=== PATIENT | female | born 1990 | race Caucasian/White ===

== ENCOUNTER 2019-12-21 14:46 | Emergency (ER) | payer OTHER ==
[2019-12-21 14:52] VITALS: BP 142/80; PULSE 98; RESP 16; TEMP 98.7
--- NOTE | 2019-12-21 15:32 | XR ---
EXAMINATION TYPE: XR ankle complete LT DATE OF EXAM: 12/21/2019 CLINICAL HISTORY: Rolling injury 2 days ago with pain. TECHNIQUE: Frontal, lateral and oblique images of the left ankle are obtained. COMPARISON: None. FINDINGS: There is no acute fracture/dislocation evident in the left ankle. The ankle mortise appea rs within normal limits. Os trigonum is present. The overlying soft tissue appears unremarkable. IMPRESSION: There is no acute fracture or dislocation in the left ankle.
--- NOTE | 2019-12-21 16:02 | ED ---
Lower Extremity Injury HPI - General Chief Complaint: Extremity Injury, Lower Stated Complaint: L Ankle Injury Time Seen by Provider: 12/21/19 14:58 Source: patient Mode of arrival: ambulatory Limitations: no limitations - History of Present Illness Initial Comments: 29-year-old female patient presents to the emergency department today for evaluation of left ankle pain and swelling. Patient states on Saturday she had twisting injury. Patient states that the area did swell. States she's been using an Niraj wrap and resting and the pain seems to be getting worse. She reports a burning sensation around the left lateral ankle. Denies any numbness or tingling. She denies any pain near the knee. Denies falling during the injury on Saturday. Denies any other injuries.Patient denies any headache, neck pain, back pain, chest pain, shortness of breath, dizziness, weakness, abdominal pain, nausea, vomiting, or difficulties with bowel movements or urination. - Related Data Previous Rx's Medication Instructions Recorded Azithromycin [Zithromax Z-pack] 0 mg PO DIRECTED #1 pack 04/18/16 Dicyclomine [Bentyl] 20 mg PO TID #30 tablet 04/18/16 Promethaz-Cod 6.25-10 mg/5 ml 5 ml PO Q6HR PRN #120 ml 04/18/16 [Phenergan with Codeine] methylPREDNISolone [Medrol Dose 4 mg PO DIRECTED #1 pack 04/18/16 Pack] Allergies Allergy/AdvReac Type Severity Reaction Status Date / Time No Known Allergies Allergy Verified 12/21/19 14:52 Review of Systems ROS Statement: Those systems with pertinent positive or pertinent negative responses have been documented in the HPI. ROS Other: All systems not noted in ROS Statement are negative. Past Medical History Past Medical History: No Reported History History of Any Multi-Drug Resistant Organisms: None Reported Past Surgical History: No Surgical Hx Reported Past Psychological History: No Psychological Hx Reported Past Alcohol Use History: Occasional Past Drug Use History: None Reported General Exam Limitations: no limitations General appearance: alert, in no apparent distress, other (This is a well- developed, well-nourished adult female patient in no acute distress. Vital signs upon presentation are temperature 98.7F, pulse 98, respirations 16, blood pressure 142/80, pulse ox 98% on room air.) Respiratory exam: Present: normal lung sounds bilaterally. Absent: respiratory distress, wheezes, rales, rhonchi, stridor Cardiovascular Exam: Present: regular rate, normal rhythm, normal heart sounds. Absent: systolic murmur, diastolic murmur, rubs, gallop, clicks Extremities exam: Present: full ROM, tenderness (Left lateral ankle), normal capillary refill, other (There is soft tissue swelling surrounding the left lateral malleolus. Skin is otherwise pink, warm, dry. Cap refills less than 3 seconds. Pedal and posttibial pulses are 2+ and equal bilaterally. There is no fifth metatarsal tenderness. No proximal tib-fib tenderness.). Absent: normal inspection, pedal edema, joint swelling, calf tenderness Neurological exam: Present: alert, oriented X3, CN II-XII intact Psychiatric exam: Present: normal affect, normal mood Skin exam: Present: warm, dry, intact, normal color. Absent: rash Course Vital Signs 12/21/19 14:50 Temperature 98.7 F Pulse Rate 98 Respiratory 16 Rate Blood Pressure 142/80 O2 Sat by Pulse 98 Oximetry Medical Decision Making - Medical Decision Making 29-year-old female patient presents to the emergency department today for evaluation of left ankle pain and swelling. Physical examination reveals soft tissue swelling surrounding the left lateral malleolus. There is no fifth metatarsal or proximal tib-fib tenderness. Neurovascular status is intact. X- rays negative for acute fracture. Patient symptoms are consistent with acute ankle sprain. We'll place an ankle stirrup splint. She is educated regarding rest, ice, elevation. She is instructed take Tylenol Motrin for pain control. She is instructed to follow-up with her primary care physician for recheck in 1- 2 days. She is instructed to have repeat x-rays performed in 7-10 days if pain symptoms persist. Return parameters were discussed in detail. She verbalizes understanding and agrees with this plan. - Radiology Data Radiology results: report reviewed, image reviewed 3 views of the left ankle are obtained. Report is reviewed in its entirety. Impression by Dr. Venegas shows no acute fracture dislocation in the left ankle and Disposition Clinical Impression: Left ankle sprain Disposition: HOME SELF-CARE Condition: Good Instructions (If sedation given, give patient instructions): Ankle Sprain (ED) Additional Instructions: Rest, ice, elevate the left ankle. Use splint for comfort and support. Take Tylenol and Motrin for pain control. Follow-up with your primary care physician for recheck in 1-2 days. Have repeat x-rays performed in 7-10 days if pain symptoms persist. Return to the emergency department for any other new, wo rsening, or concerning symptoms. Is patient prescribed a controlled substance at d/c from ED?: No Referrals: None,Stated [Primary Care Provider] - 1-2 days Time of Disposition: 16:02
== END 2019-12-21 16:13 | disposition home or self-care (01) ==
LOC: EC 14:46
DX: S93.402A Sprain of unspecified ligament of left ankle, initial encounter (principal); X50.1XXA Overexertion from prolonged static or awkward postures, initial encounter
CPT/HCPCS: 73610; 99283; 29515; L4350

== ENCOUNTER 2019-12-27 04:22 | Observation (INO) | payer OTHER ==
[2019-12-27] MEDS ORDERED: LIDOCAINE 1% INJ 10MG/ML (20 ML MDV) SQ ONE (04:43)
[2019-12-27] MEDS ORDERED: DIPH,PERTUS(ACELL)TETVAC-LF 0.5 ML VIAL IM ONE (04:43)
[2019-12-27] MEDS ORDERED: MORPHINE SULFATE 4 MG/ML SYRINGE IM STA (04:43)
--- NOTE | 2019-12-27 05:22 | XR ---
EXAMINATION TYPE: XR forearm RT DATE OF EXAM: 12/27/2019 COMPARISON: NONE HISTORY: Foreign body TECHNIQUE: 2 views FINDINGS: There is rectangular shaped 16mm by 10 mm density in the anterior soft tissues of the mid f orearm consistent with broken glass foreign body. I see no fracture nor dislocation. Elbow joint and wrist joint appear intact. There is a second adjacent smaller glass foreign body that measures 7 mm i n length. IMPRESSION: 2 glass Foreign bodies in the anterior soft tissues of the mid forearm.
[2019-12-27] MEDS ORDERED: NALOXONE 0.4 MG/ML 1 ML VIAL IV PRN (05:32)
[2019-12-27] MEDS ORDERED: MORPHINE SULFATE 4 MG/ML SYRINGE IV PRN (05:32)
[2019-12-27] MEDS ORDERED: ONDANSETRON 4 MG/2 ML VIAL IVP PRN (05:32)
--- NOTE | 2019-12-27 05:44 | ED ---
Wound/Laceration HPI - General Chief Complaint: Wound/Laceration Stated Complaint: arm lac Time Seen by Provider: 12/27/19 04:34 Source: patient Mode of arrival: ambulatory Limitations: no limitations - History of Present Illness Initial Comments: This patient is a 29-year-old woman who presents to be evaluated for right forearm injury. The patient states that she had lost her temper and punched a plate glass. This was approximately an hour ago now. She states that the glass broke and cut the palmar aspect of her right forearm. She also notes that she has some numbness to the second and third digits of the right hand. She is having difficulty closing her fingers. Patient is not sure when her last tetanus shot was given. She denies any other injuries tonight Onset/Timin -: hour(s) Extremity Location: Right: Forearm Patient Tetanus UTD: No Context: accidental Associated Symptoms: loss of feeling/numbness, suspect foreign body present, unable to move injured part - Related Data Home Medications Medication Instructions Recorded Confirmed Ibuprofen [Motrin Ib] 800 mg PO Q8H PRN 12/27/19 12/27/19 Omeprazole 20 mg PO DAILY 12/27/19 12/27/19 Previous Rx's Medication Instructions Recorded Cephalexin [Keflex] 500 mg PO Q6HR 7 Days #28 cap 12/27/19 Sennosides [Senokot] 2 tab PO DAILY PRN #60 tablet 12/27/19 traMADol HCl [Ultram] 50 mg PO Q6H PRN #16 tab 12/27/19 Allergies Allergy/AdvReac Type Severity Reaction Status Date / Time No Known Allergies Allergy Verified 12/27/19 08:10 Review of Systems ROS Statement: Those systems with pertinent positive or pertinent negative responses have been documented in the HPI. ROS Other: All systems not noted in ROS Statement are negative. Constitutional: Denies: fever, chills Respiratory: Denies: cough, dyspnea Cardiovascular: Denies: chest pain, palpitations Gastrointestinal: Reports: nausea, vomiting. Denies: abdominal pain Genitourinary: Denies: abnormal menses Musculoskeletal: Reports: myalgia (Right forearm) Skin: Reports: lesions (Laceration right forearm) Neurological: Reports: weakness, numbness Hematological/Lymphatic: Denies: easy bleeding Past Medical History Past Medical History: No Reported History History of Any Multi-Drug Resistant Organisms: None Reported Past Surgical History: No Surgical Hx Reported Past Psychological History: No Psychological Hx Reported Smoking Status: Current every day smoker Past Alcohol Use History: Daily Past Drug Use History: Marijuana - Past Family History Father Family Medical History: No Reported History Mother Family Medical History: No Reported History General Exam Limitations: no limitations General appearance: alert, in no apparent distress Head exam: Present: atraumatic, normocephalic Eye exam: Present: normal appearance. Absent: scleral icterus, conjunctival injection Respiratory exam: Present: normal lung sounds bilaterally. Absent: respiratory distress, wheezes, rales, rhonchi, stridor Cardiovascular Exam: Present: regular rate, normal rhythm, normal heart sounds. Absent: systolic murmur, diastolic murmur, rubs, gallop GI/Abdominal exam: Present: soft. Absent: distended, tenderness, guarding, rebound, rigid, mass Right Forearm Wrist exam: Present: laceration, other (There is an approximately 4 cm laceration to the palmar aspect of the right forearm at the middle portion. No active bleeding. There is also a smaller laceration, approximately 2 cm at the antecubital fossa with no active bleeding.). Absent: normal inspection, full ROM, ecchymosis, deformity, crepitus, dislocation Neurological exam: Present: alert, motor sensory deficit, other (Motor exam of the right forearm reveals that there is weakness in opposition of the thumb and fifth digit concerning for median nerve injury. Sensory deficit to the second third digit of the right hand.) Skin exam: Present: warm, dry, normal color Course Vital Signs 12/27/19 12/27/19 04:30 06:08 Temperature 98.2 F Pulse Rate 87 86 Respiratory 26 H 18 Rate Blood Pressure 109/80 102/78 O2 Sat by Pulse 99 100 Oximetry Procedures - Laceration Laceration #1 Consent Obtained: verbal consent Indication: laceration Site: upper extremity Size (cm): 2 Description: linear Depth: simple, single layer Anesthetic Used: lidocaine 1% Anesthesia Technique: local infiltration Amount (mls): 1 Size of Sutures: 4-0 Number of Sutures: 3 Technique: simple, interrupted Medical Decision Making - Medical Decision Making This patient is a 29-year-old woman presenting for laceration to the right forearm. X-ray reveals presence of an approximately 1 x 2 cm foreign body in the tissue. After discussing risks and benefits with the patient I did attempt to retract the tissue and was not able to visualize the foreign body. Given the possibility of lying near the median nerve I did not feel that blind foreign body removal was lucero. I did close the small antecubital fossa laceration, see the procedure note. Patient's tetanus booster is given and dose of antibiotics. She did receive analgesia. Discussed case with Dr. Og who states that he will be able to see the pat ient and probably take her to the OR for foreign body removal, then be able to do further exam to rule out median nerve injury - Lab Data Result diagrams: 12/27/19 05:41 12/27/19 05:41 Disposition Clinical Impression: Laceration, Foreign body Narrative: Please note this is a forearm laceration with foreign body Disposition: ADMITTED IP TO THIS HOSP Condition: Fair Is patient prescribed a controlled substance at d/c from ED?: No
[2019-12-27 05:57] LABS: Basophils % (A) 0 %; Eosinophils # (A) 0.4 k/uL (0-0.7); Eosinophils % (A) 3 %; HCT 39.1 % (34.0-46.0); HGB 12.7 gm/dL (11.4-16.0); Lymphocytes # (A) 2.6 k/uL (1.0-4.8); Lymphocytes % (A) 21 %; MCH 29.5 pg (25.0-35.0); MCHC 32.4 g/dL (31.0-37.0); Mean Platelet Volume 7.6; Monocytes # (A) 0.4 k/uL (0-1.0); Monocytes % (A) 3 %; Neutrophils # (A) 8.8 k/uL (1.3-7.7); Neutrophils % (A) 71 %; Platelet Count 279 k/uL (150-450); RDW 13.2 % (11.5-15.5); WBC 12.3 k/uL (3.8-10.6)
[2019-12-27 06:06] LABS: African American GFR (CKD) >90 (>60 ml/min/1.73 sqM); Anion Gap 7 mmol/L; Blood Urea Nitrogen 6 mg/dL (7-17); Carbon Dioxide 23 mmol/L (22-30); Chloride 113 mmol/L (98-107); Glucose 98 mg/dL (74-99); INR 0.9 (<1.2); Non-African American GFR(CKD) >90 (>60 ml/min/1.73 sqM); Partial Thromboplastin Time 22.3 sec (22.0-30.0); Potassium 3.7 mmol/L (3.5-5.1); Prothrombin Time 9.8 sec (9.0-12.0); Sodium 143 mmol/L (137-145)
[2019-12-27] MEDS: SODIUM CHLORIDE 0.9% 1,000 ML IV SCH ×3 (06:09→14:11)
--- NOTE | 2019-12-27 09:33 | P.HPOR ---
History of Present Illness H&P Date: 12/27/19 This is a 29-year-old female who is admitted for a right forearm laceration with foreign body. Patient states that around 2 AM this morning she punched a window. Patient was evaluated in the emergency room and her tetanus shot was updated. Patient reports numbness in the first 3 digits of the right hand. Patient is a current every day smoker and admits to daily alcohol use. Patient denies any fever/chills, abdominal pain, shortness of breath or chest pain. Review of Systems See HPI. ROS unobtainable: due to endotracheal tube Past Medical History Past Medical History: No Reported History History of Any Multi-Drug Resistant Organisms: None Reported Past Surgical History: No Surgical Hx Reported Past Psychological History: No Psychological Hx Reported Smoking Status: Current every day smoker Past Alcohol Use History: Daily Additional Past Alcohol Use History / Comment(s): daily alcohol use, 5 beers yesterday last being 1AM Past Drug Use History: Marijuana Additional Drug Use History / Comment(s): today 0000 - Past Family History Father Family Medical History: No Reported History Mother Family Medical History: No Reported History Medications and Allergies Home Medications Medication Instructions Recorded Confirmed Type Ibuprofen [Motrin Ib] 800 mg PO Q8H PRN 12/27/19 12/27/19 History Omeprazole 20 mg PO DAILY 12/27/19 12/27/19 History Allergies Allergy/AdvReac Type Severity Reaction Status Date / Time No Known Allergies Allergy Verified 12/27/19 08:10 Physical Examination On exam patient is resting comfortably in bed in no acute distress. Head is normocephalic and atraumatic. There is an approximately 3 cm laceration to the volar aspect of the right mid-forearm. There is another small laceration to the proximal volar right forearm with sutures intact. There is no active bleeding. There is no erythema. Patient has decreased sensation to the first, second, and third digits of the right hand. Sensation is normal to the fourth and fifth digits of the right hand. Patient has limited range of motion of the fingers of the right hand due to pain. Exams of the left upper extremity and bilateral lower extremities are within normal limits. Results X-rays of the right forearm dated 12/26/2019 and negative for any fracture or dislocation. Foreign body noted in the right forearm. - Labs Labs: Abnormal Lab Results - Last 24 Hours (Table) 12/27/19 12/27/19 Range/Units 05:41 05:41 WBC 12.3 H (3.8-10.6) k/uL Neutrophils # 8.8 H (1.3-7.7) k/uL Chloride 113 H (98-107) mmol/L BUN 6 L (7-17) mg/dL Creatinine 0.48 L (0.52-1.04) mg/dL Calcium 8.0 L (8.4-10.2) mg/dL H & H 12/27/19 Range/Units 05:41 Hgb 12.7 (11.4-16.0) gm/dL Hct 39.1 (34.0-46.0) % Coagulation 12/27/19 Range/Units 05:41 INR 0.9 (<1.2) Result Diagrams: 12/27/19 05:41 12/27/19 05:41 Assessment and Plan (1) Foreign body Current Visit: Yes Status: Acute Code(s): XCL6172 - SNOMED Code(s): 378278418 (2) Laceration Current Visit: Yes Status: Acute Code(s): NNT9822 - SNOMED Code(s): 804256207 Plan: 1. NPO today. 2. Planning for irrigation and debridement of right forearm laceration with removal of foreign body today pending patient consent.
[2019-12-27] MEDS ORDERED: SENNOSIDES-DOCUSATE SODIUM 1 EACH TAB PO PRN (10:42)
[2019-12-27] MEDS ORDERED: HYDROmorphone 1 MG/ML 1 ML SYRINGE IVP PRN (10:42)
[2019-12-27] MEDS ORDERED: HYDROmorphone 0.5 MG/0.5 ML SYRINGE IVP PRN ×2 (10:42)
[2019-12-27] MEDS ORDERED: traMADol 50 MG TAB PO PRN (10:43)
[2019-12-27] MEDS ORDERED: SODIUM CHLORIDE 0.9% 1,000 ML IV SCH (10:45)
[2019-12-27] MEDS ORDERED: fentaNYL (PF) 50 MCG/ML 2 ML AMP ONE (12:22)
[2019-12-27] MEDS ORDERED: PROPOFOL 10 MG/ML 20 ML VIAL IV ONE (12:22)
[2019-12-27] MEDS ORDERED: IV FLUID CONTINUATION 1,000 ML IV ONE (12:22)
[2019-12-27] MEDS ORDERED: GLYCOPYRROLATE 0.2 MG/ML 2 ML VIAL ONE (12:22)
[2019-12-27] MEDS ORDERED: SUCCINYLCHOLINE CHLORIDE 100 MG/5 ML SYR IV ONE (12:22)
[2019-12-27] MEDS ORDERED: SODIUM CHLORIDE 0.9% 50 ML with ceFAZolin 1,000 MG IV ONE ×2 (12:49)
[2019-12-27] MEDS ORDERED: BUPIVACAINE (PF) 0.25% 30 ML VIAL SQ ONE ×2 (12:56→13:23)
--- NOTE | 2019-12-27 13:19 | P.OP ---
Date of Procedure: 12/27/19 Preoperative Diagnosis: Laceration right forearm with foreign body Postoperative Diagnosis: Laceration right forearm with foreign body Procedure(s) Performed: 1. Removal foreign body right forearm (glass) 2. Irrigation debridement right forearm laceration 3. Exploration of wound right forearm 4. Primary closure right forearm wound laceration Anesthesia: YANIV Surgeon: Oumar Gonzales Senior Q[employer] Automation Engineer #1: Lorelei Medley Estimated Blood Loss (ml): 10 Pathology: none sent Condition: stable Disposition: PACU Indications for Procedure: This is a 29-year-old female that sustained a laceration to her right forearm earlier this morning after she put her arm through a glass window. She presented to the emergency room with retained foreign body in her right forearm as well as some numbness in her median nerve distribution and difficulty moving fingers. Patient was seen and evaluated by myself, and on exam she did have difficulty moving her fingers, but was able to move all of her PIP and DIP joints of her right hand. She has some decreased sensation in her thumb index and middle fingers. Her motor function for her median nerve is intact. After discussing the surgical nonsurgical treatment options with her at length, I recommended removal of the foreign body with exploration of the wound and primary closure. Informed consent was obtained. Operative Findings: The operative findings are consistent with a retained foreign body, which was glass. There was deep muscle lacerations as well as fascial lacerations. Also, there appeared to be one small piece of glass on the fluoroscopic x-rays that could not be safely located to be removed Description of Procedure: The patient was seen in the preoperative area and her right hand was examined. She is able to flex and extend the DIP and PIP of all her fingers as well as IP joint of her thumb. She has decreased sensation in her thumb and index and middle fingers. Her capillary refill is brisk. Based on her motor exam, she does not have a complete median nerve laceration. The operative area was marked and then the patient was brought to the operating room. She was given preoperative IV antibiotics. General anesthetic was administered by the anesthesia department. Tourniquet was placed on the right upper arm and the right upper extremity is prepped and draped in usual sterile fashion. A universal timeout was then performed confirming the patient's name, surgical site, ALLERGIES, and consent. The wound was then explored. The laceration was measured and found to be 5 cm in length transversely across the volar midforearm . The edges were extended and the wound was then explored. The wound was also extended proximally. The foreign body which was most likely glass was easily encountered and removed. Any devitalized tissue was excised. There was a small amount of muscle and subcutaneous fat which was removed. The wound was then explored. There was muscle lacerations deep in the wound as well as fascia lacerations. There was no significant active bleeding. Fluoroscopic x-rays confirmed removal of the large piece of glass. It appeared there is a small thin piece of glass still within the tissue on the fluoroscopic x-ray. This was unable to be located without causing further damage. Due to its size and location it was left in place. It was then irrigated with antibiotic solution and closed with 2-0 Vicryl followed by 4-0 nylon. Sterile dressing was then applied and patient was transferred recovery room stable condition Asst. HERMAN Melchor was required due the complexity surgery the need for skilled surgical elastic knitter hand frame.
--- NOTE | 2019-12-27 13:39 | P.DS ---
Providers Date of admission: 12/27/19 05:32 Expected date of discharge: 12/27/19 Attending physician: Momo Gonzales Primary care physician: Stated None - Discharge Diagnosis(es) (1) Foreign body Current Visit: Yes Status: Acute (2) Laceration Current Visit: Yes Status: Acute Hospital Course: This is a 29-year-old female who is admitted for a right forearm laceration with foreign body. Patient underwent I&D of right forearm laceration with removal of foreign body and primary wound closure on by Dr Oumar Gonzales. The procedure is performed without complication or sequele. Patient is doing well postoperatively. Labs and vitals are stable on day of discharge. On exam patient is resting comfortably in bed in no acute distress. Incision is clean, dry and intact. The right upper extremity is warm and well perfused. Patient is in good condition for discharge home. Patient Condition at Discharge: Fair Plan - Discharge Summary Discharge Rx Participant: Yes New Discharge Prescriptions: New Cephalexin [Keflex] 500 mg PO Q6HR 7 Days #28 cap Sennosides [Senokot] 2 tab PO DAILY PRN #60 tablet PRN Reason: Constipation traMADol HCl [Ultram] 50 mg PO Q6H PRN #16 tab PRN Reason: Pain No Action Ibuprofen [Motrin Ib] 800 mg PO Q8H PRN PRN Reason: Pain Omeprazole 20 mg PO DAILY Discharge Medication List Cephalexin [Keflex] 500 mg PO Q6HR 7 Days #28 cap 12/27/19 [Rx] Ibuprofen [Motrin Ib] 800 mg PO Q8H PRN 12/27/19 [History] Omeprazole 20 mg PO DAILY 12/27/19 [History] Sennosides [Senokot] 2 tab PO DAILY PRN #60 tablet 12/27/19 [Rx] traMADol HCl [Ultram] 50 mg PO Q6H PRN #16 tab 12/27/19 [Rx] Follow up Appointment(s)/Referral(s): None,Stated [Primary Care Provider] - 1-2 days Oumar Gonzales DO [Doctor of Osteopathic Medicine] - 1 Week Activity/Diet/Wound Care/Special Instructions: Keep dressing clean, dry and intact. May shower in 24-48 hours if no drainage from the incision. Sutures to be removed in 7-10 days. Rest, ice and elevate the right upper extremity for swelling. Please take medications as prescribed. Please follow-up with [facility] and call with any questions or concerns, . Discharge Disposition: HOME SELF-CARE
[2019-12-27] MEDS: HYDROmorphone 1 MG/ML 1 ML SYRINGE IVP ONE ×2 (13:40→13:46)
[2019-12-27 14:27] VITALS: PULSE 83
[2019-12-27 14:51] VITALS: BP 119/84; RESP 16; TEMP 98.4
--- NOTE | 2019-12-27 16:01 | XR ---
EXAMINATION TYPE: XR forearm RT, FL guidance operating room DATE OF EXAM: 12/27/2019 CLINICAL HISTORY: Foreign body removal TECHNIQUE: Fluoroscopy. COMPARISON: None. FINDINGS: Fluoroscopic guidance was provided during procedure performed by Dr. Gonzales. A total of 32 seconds of fluoroscopic time was utilized during the procedure and 2 spot images was acquired. Pl ease see operative report for additional details. IMPRESSION: As Above.
== END 2019-12-27 16:26 | disposition home or self-care (01) ==
LOC: EC 04:22 → 1SOBS 05:32
PROVIDERS: ADMIT Orthopaedic Surgery Hand Surgery; ATTEND Orthopaedic Surgery Hand Surgery
DX: S51.821A Laceration with foreign body of right forearm, initial encounter (principal); W22.09XA Striking against other stationary object, initial encounter; W25.XXXA Contact with sharp glass, initial encounter; Z79.899 Other long term (current) drug therapy; F17.200 Nicotine dependence, unspecified, uncomplicated
CPT/HCPCS: 12001; 90471; 99284; 36415; 80048; 85025; 85610; 85730; 84703; 73090; 90715; 13121; G0378; J2270; J0690 ×2; J2001; J3010; J1170 ×2; J0330; J2704

== ENCOUNTER 2021-10-09 19:26 | Observation (INO) | payer OTHER ==
[2021-10-09] MEDS ORDERED: ONDANSETRON ODT 4 MG TAB PO STA (20:17)
--- NOTE | 2021-10-09 20:55 | CT ---
EXAMINATION TYPE: CT brain wo con DATE OF EXAM: 10/09/2021 COMPARISON: None HISTORY: headache and severe pressure behind orbits CT DLP: 1106.4 mGycm Automated exposure control for dose reduction was used. Images obtained of the brain without contrast. Ventricles have normal size. There is no mass effect or midline shift. No sign of intracranial hemorr matt. The calvarium is intact. There is normal aeration of the mastoid sinuses. IMPRESSION: Normal unenhanced head CT scan.
[2021-10-09] MEDS ORDERED: diphenhydrAMINE 50 MG/ML 1 ML VIAL IVP STA (21:14)
[2021-10-09] MEDS ORDERED: SODIUM CHLORIDE 0.9% 1,000 ML IV STA (21:14)
[2021-10-09] MEDS ORDERED: DEXAMETHASONE SOD PHOSPHATE 10 MG/ML 1 ML VIAL IV STA (21:14)
[2021-10-09] MEDS ORDERED: KETOROLAC 15 MG/ML 1 ML VIAL IVP STA (21:14)
[2021-10-09] MEDS ORDERED: CAFFEINE-SODIUM BENZOATE 500 MG in SODIUM CHLORIDE 0.9% 1,000 ML IVPB ONE (21:30)
--- NOTE | 2021-10-09 22:05 | ED ---
Headache HPI - General Mode of arrival: ambulatory <Aracelis Henriquez - Last Filed: 10/10/21 00:40> <Elizabeth Zamora - Last Filed: 10/13/21 13:57> - General Chief Complaint: Headache Stated Complaint: migraine, vomiting blood Time Seen by Provider: 10/09/21 20:45 - History of Present Illness Initial Comments: Patient is a 31-year-old female presenting with chief complaint of migraine. Patient has no history of migraines. Headache started 5 days ago. It is primar melody located behind the right eye, she states that there is a large amount of pressure. She admits to some blurriness in the right eye. She has been nauseous and vomiting. She admits to light sensitivity. She denies any neck pain or stiffness, fever, chills, chest pain, shortness of breath, loss of consciousness, seizure, numbness, tingling, abdominal pain, palpitations, weakness, recent trauma. (Aracelis Henriquez) - Related Data Home Medications Medication Instructions Recorded Confirmed Ibuprofen [Motrin Ib] 800 mg PO Q8H PRN 12/27/19 10/09/21 Omeprazole Magnesium [PriLOSEC OTC] 20 mg PO DAILY 10/09/21 10/09/21 Previous Rx's Medication Instructions Recorded Topiramate [Topamax] 25 mg PO BID 30 Days #60 tab 10/10/21 Allergies Allergy/AdvReac Type Severity Reaction Status Date / Time No Known Allergies Allergy Verified 10/09/21 22:52 Review of Systems ROS Other: All systems not noted in ROS Statement are negative. <Aracelis Henriquez - Last Filed: 10/10/21 00:40> ROS Other: All systems not noted in ROS Statement are negative. <Elizabeth Zamora - Last Filed: 10/13/21 13:57> ROS Statement: Those systems with pertinent positive or pertinent negative responses have been documented in the HPI. Past Medical History Past Medical History: No Reported History History of Any Multi-Drug Resistant Organisms: None Reported Past Surgical History: No Surgical Hx Reported Past Psychological History: No Psychological Hx Reported Smoking Status: Current every day smoker Past Alcohol Use History: Occasional Past Drug Use History: Marijuana - Past Family History Father Family Medical History: No Reported History Mother Family Medical History: No Reported History <Aracelis Henriquez - Last Filed: 10/10/21 00:40> General Exam General appearance: alert, in no apparent distress Head exam: Present: atraumatic, normocephalic, normal inspection Eye exam: Present: normal appearance, PERRL, EOMI. Absent: scleral icterus, conjunctival injection, periorbital swelling Neck exam: Present: normal inspection, full ROM, other (Negative Kernig and Brudzinski's). Absent: tenderness, meningismus Respiratory exam: Present: normal lung sounds bilaterally. Absent: respiratory distress, wheezes, rales, rhonchi, stridor Cardiovascular Exam: Present: regular rate, normal rhythm, normal heart sounds. Absent: systolic murmur, diastolic murmur, rubs, gallop, clicks GI/Abdominal exam: Present: soft. Absent: distended, tenderness, guarding, rebound, rigid Neurological exam: Present: alert, oriented X3, CN II-XII intact Expanded Patient oriented to: Present: person, place, time Speech: Present: fluid speech Cranial nerves: EOM's Intact: Normal, Tongue Deviation: Normal, Nystagmus: Normal (None present), Facial Sensation: Normal Cerebellar function: Finger to Nose: Normal, Heel to [place]: Normal Motor strength exam: RUE: 5, LUE: 5, RLE: 5, LLE: 5 Eye Response: (4) open spontaneously Motor Response: (6) obeys commands Verbal Response: (5) oriented Psychiatric exam: Present: normal affect, normal mood Skin exam: Present: warm, dry, intact, normal color. Absent: rash <Aracelis Henriquez - Last Filed: 10/10/21 00:40> Course Vital Signs 10/09/21 10/10/21 20:07 01:06 Temperature 99.3 F Pulse Rate 101 H 85 Respiratory 17 18 Rate Blood Pressure 125/87 132/67 O2 Sat by Pulse 98 98 Oximetry Medical Decision Making - Lab Data Result diagrams: 10/09/21 23:34 10/09/21 23:34 <Aracelis Henriquez - Last Filed: 10/10/21 00:40> - Lab Data Result diagrams: 10/09/21 23:34 10/09/21 23:34 <Elizabeth Zamora - Last Filed: 10/13/21 13:57> - Medical Decision Making Patient is a 31-year-old female presenting with chief complaint of migraine. She has no history of migraines, and this episode started 5 days ago, and is located primarily behind the right eye. On examination there is no neck s tiffness or tenderness, negative Kernig and Brudzinski's exam, no focal neurological deficits. CT of the brain without contrast is negative for any acute intracranial process. CBC shows no leukocytosis. CRP is 4.9. Sodium of 135. Patient has been given 1 L fluid bolus, Zofran, morphine, Reglan, Toradol, Benadryl, Decadron, caffeine without improvement. I spoke with Dr. Pompa from neurology, who advised obtaining a CTA of the brain, and utilizing magnesium, Fioricet, and Solu-Medrol for pain control. CTA is ordered, magnesium, Fioricet, and Solu-Medrol are ordered. I spoke with Dr. Alarcon from [facility] agreed to admit the patient. Patient was agreeable to the plan. I discussed this case with my attending Dr. Zamora. (Aracelis Henriquez) - Lab Data Lab Results 10/09/21 10/09/21 10/09/21 Range/Units 23:34 23:34 23:34 WBC 10.2 (3.8-10.6) k/uL RBC 4.48 (3.80-5.40) m/uL Hgb 13.3 (11.4-16.0) gm/dL Hct 39.7 (34.0-46.0) % MCV 88.7 (80.0-100.0) fL MCH 29.7 (25.0-35.0) pg MCHC 33.5 (31.0-37.0) g/dL RDW 12.9 (11.5-15.5) % Plt Count 315 (150-450) k/uL MPV 7.9 Neutrophils % 84 % Lymphocytes % 11 % Monocytes % 3 % Eosinophils % 2 % Basophils % 0 % Neutrophils # 8.5 H (1.3-7.7) k/uL Lymphocytes # 1.1 (1.0-4.8) k/uL Monocytes # 0.3 (0-1.0) k/uL Eosinophils # 0.2 (0-0.7) k/uL Basophils # 0.0 (0-0.2) k/uL ESR 29 H (0-20) mm/hr Sodium 135 L (137-145) mmol/L Potassium 3.7 (3.5-5.1) mmol/L Chloride 105 (98-107) mmol/L Carbon Dioxide 20 L (22-30) mmol/L Anion Gap 10 mmol/L BUN 13 (7-17) mg/dL Creatinine 0.73 (0.52-1.04) mg/dL Est GFR (CKD-EPI)AfAm >90 (>60 ml/min/1.73 sqM) Est GFR (CKD-EPI)NonAf >90 (>60 ml/min/1.73 sqM) Glucose 89 (74-99) mg/dL Calcium 8.1 L (8.4-10.2) mg/dL Total Bilirubin 0.4 (0.2-1.3) mg/dL AST 32 (14-36) U/L ALT 45 H (4-34) U/L Alkaline Phosphatase 96 (38-126) U/L C-Reactive Protein 4.9 H (<1.0) mg/dL Total Protein 6.7 (6.3-8.2) g/dL Albumin 3.9 (3.5-5.0) g/dL Coronavirus (PCR) (Not Detectd) Influenza Type A RNA Not Detected (Not Detectd) Influenza Type B (PCR) Not Detected (Not Detectd) 10/09/21 Range/Units 23:34 WBC (3.8-10.6) k/uL RBC (3.80-5.40) m/uL Hgb (11.4-16.0) gm/dL Hct (34.0-46.0) % MCV (80.0-100.0) fL MCH (25.0-35.0) pg MCHC (31.0-37.0) g/dL RDW (11.5-15.5) % Plt Count (150-450) k/uL MPV Neutrophils % % Lymphocytes % % Monocytes % % Eosinophils % % Basophils % % Neutrophils # (1.3-7.7) k/uL Lymphocytes # (1.0-4.8) k/uL Monocytes # (0-1.0) k/uL Eosinophils # (0-0.7) k/uL Basophils # (0-0.2) k/uL ESR (0-20) mm/hr Sodium (137-145) mmol/L Potassium (3.5-5.1) mmol/L Chloride (98-107) mmol/L Carbon Dioxide (22-30) mmol/L Anion Gap mmol/L BUN (7-17) mg/dL Creatinine (0.52-1.04) mg/dL Est GFR (CKD-EPI)AfAm (>60 ml/min/1.73 sqM) Est GFR (CKD-EPI)NonAf (>60 ml/min/1.73 sqM) Glucose (74-99) mg/dL Calcium (8.4-10.2) mg/dL Total Bilirubin (0.2-1.3) mg/dL AST (14-36) U/L ALT (4-34) U/L Alkaline Phosphatase (38-126) U/L C-Reactive Protein (<1.0) mg/dL Total Protein (6.3-8.2) g/dL Albumin (3.5-5.0) g/dL Coronavirus (PCR) Not Detected (Not Detectd) Influenza Type A RNA (Not Detectd) Influenza Type B (PCR) (Not Detectd) Disposition Time of Disposition: 23:51 Decision to Admit Reason: Admit from EC Decision Date: 10/09/21 Decision Time: 23:51 <Aracelis Henriquez - Last Filed: 10/10/21 00:40> <Elizabeth Zamora - Last Filed: 10/13/21 13:57> Clinical Impression: Migraine Disposition: ADMITTED IP TO THIS HOSP Condition: Good
[2021-10-09] MEDS ORDERED: MORPHINE SULFATE 4 MG/ML SYRINGE IVP STA (22:15)
[2021-10-09] MEDS ORDERED: METOCLOPRAMIDE 5 MG/ML 2 ML VIAL IVP STA (23:17)
[2021-10-09 23:54] LABS: Basophils % (A) 0 %; Eosinophils # (A) 0.2 k/uL (0-0.7); Eosinophils % (A) 2 %; HCT 39.7 % (34.0-46.0); HGB 13.3 gm/dL (11.4-16.0); Lymphocytes # (A) 1.1 k/uL (1.0-4.8); Lymphocytes % (A) 11 %; MCH 29.7 pg (25.0-35.0); MCHC 33.5 g/dL (31.0-37.0); MCV 88.7 fL (80.0-100.0); Mean Platelet Volume 7.9; Monocytes # (A) 0.3 k/uL (0-1.0); Monocytes % (A) 3 %; Neutrophils # (A) 8.5 k/uL (1.3-7.7); Neutrophils % (A) 84 %; Platelet Count 315 k/uL (150-450); RBC 4.48 m/uL (3.80-5.40); RDW 12.9 % (11.5-15.5); WBC 10.2 k/uL (3.8-10.6)
[2021-10-09] MEDS ORDERED: BUTALB/APAP/CAFF 50-325-40MG TAB PO STA (23:57)
[2021-10-10] MEDS ORDERED: NALOXONE 0.4 MG/ML 1 ML VIAL IV PRN (00:02)
[2021-10-10 00:13] LABS: ALT 45 U/L (4-34); AST 32 U/L (14-36); African American GFR (CKD) >90 (>60 ml/min/1.73 sqM); Albumin 3.9 g/dL (3.5-5.0); Alkaline Phosphatase 96 U/L (38-126); Anion Gap 10 mmol/L; Blood Urea Nitrogen 13 mg/dL (7-17); C Reactive Protein 4.9 mg/dL (<1.0); Calcium 8.1 mg/dL (8.4-10.2); Carbon Dioxide 20 mmol/L (22-30); Chloride 105 mmol/L (98-107); Glucose 89 mg/dL (74-99); Non-African American GFR(CKD) >90 (>60 ml/min/1.73 sqM); Potassium 3.7 mmol/L (3.5-5.1); Sodium 135 mmol/L (137-145); Total Bilirubin 0.4 mg/dL (0.2-1.3); Total Protein 6.7 g/dL (6.3-8.2)
[2021-10-10] MEDS ORDERED: methylPREDNISolone SOD SUCCI 125 MG/2 ML VIAL IV PRN (00:20)
[2021-10-10] MEDS: MAGNESIUM SULFATE-D5W PMX 1 GM in DEXTROSE/WATER 1 100ML.BAG IVPB SCH ×2 (00:35→01:09)
[2021-10-10 01:07] VITALS: RESP 18
--- NOTE | 2021-10-10 01:33 | CT ---
EXAMINATION TYPE: CT angio head neck DATE OF EXAM: 10/10/2021 COMPARISON: None HISTORY: new onset migraines x [address] DLP: 450.3 mGycm Automated exposure control for dose reduction was used. CONTRAST: Performed with IV Contrast, patient injected with 65ml mL of Isovue 370. Images obtained from the aortic arch to the vertex of the brain with IV contrast. There are Three-D p ostprocessed images. There is normal branching pattern of the great vessels on the aortic arch. There is bilateral arteria l flow in the subclavian arteries. There is arterial flow in the common internal and external carotid arteries bilaterally there is wide patency of the carotid artery bifurcations. There is arterial t[place] w in both vertebral arteries. There is arterial flow in the anterior middle and posterior cerebral arteries. There is arterial flow in the vertebral basilar artery system. No evidence of intracranial aneurysm or neovascularity. No m ass effect. No evidence of hemodynamic stenosis. There is normal enhancement of the venous sinuses. IMPRESSION: Normal CT angiogram of the brain. Normal CT angiogram of the neck.
[2021-10-10 01:39] LABS: Erythrocyte Sedimentation Rate 29 mm/hr (0-20)
[2021-10-10 01:42] LABS: Appearance,Urine Clear (Clear); Bacteria,Urine Rare /hpf; Bilirubin,Urine Negative (Negative); Blood,Urine Small (Negative); Color,Urine Light Yellow; Glucose,Urine (UA) Negative (Negative); Ketones,Urine 1+ (Negative); Leukocyte Esterase,Urine Negative (Negative); Nitrite,Urine Negative (Negative); Protein,Urine Negative (Negative); RBC,Urine <1 /hpf (0-5); Squamous Epithelial Cell,Urine <1 /hpf (0-4); Urobilinogen,Urine <2.0 mg/dL (<2.0); WBC,Urine 1 /hpf (0-5)
[2021-10-10] MEDS ORDERED: BUTALB/APAP/CAFF 50-325-40MG TAB PO PRN (03:24)
--- NOTE | 2021-10-10 03:25 | P.HPIM ---
History of Present Illness H&P Date: 10/10/21 Chief Complaint: Headache 31 year old woman with no significant medical history presented with headache. Pt says her pain started 7 days ago with sudden onset, and has not gotten any better. She was not drinking prior to her headache, nor was she placed on any new medications. She's tried ibuprofen, but it hasnt worked. She denies fevers, chills, vomiting, chest pain, palpitations, syncope, presyncope, abdominal pain, constipation, diarrhea, dysuria, dyschezia, numbness/weakness. She reports photophobia, nausea, generalized weakness and fatigue. On my evaluation, patient is afebrile, 132/67, HR 85, 98% on room air. CBC, chemistries are unremarkable. LFTs show elevated ALT to 45. ESR/CRP are 29/4.9. CTH was negative. CT H/N angio was also negative. All Systems reviewed and pertinent positives and negatives noted in HPI, all other symptoms are negative Gen: awake, alert HEENT: normocephalic, atraumatic, good hearing acuity, moist mucous membranes Resp: good air exchange, breathing comfortably with no accessory muscle use CVS: good distal perfusion x 4, GI: soft, NTTP, ND : no SPT, no CVAT, wilson catheter not present MSK: no pitting edema, no clubbing Neuro: non-focal, moving all extremities Psych: cooperative, euthymic mood Labs and imaging reviewed as above Assessment/plan: Migraine -Admit to observation, telemetry -neurology consult -toradol q6h PRN -Fioricet PRN Pt is full code DVT PPx with early ambulation Past Medical History Past Medical History: No Reported History History of Any Multi-Drug Resistant Organisms: None Reported Past Surgical History: No Surgical Hx Reported Past Psychological History: No Psychological Hx Reported Smoking Status: Current every day smoker Past Alcohol Use History: Occasional Past Drug Use History: Marijuana - Past Family History Father Family Medical History: No Reported History Mother Family Medical History: No Reported History Medications and Allergies Home Medications Medication Instructions Recorded Confirmed Type Ibuprofen [Motrin Ib] 800 mg PO Q8H PRN 12/27/19 10/09/21 History Omeprazole Magnesium [PriLOSEC OTC] 20 mg PO DAILY 10/09/21 10/09/21 History Allergies Allergy/AdvReac Type Severity Reaction Status Date / Time No Known Allergies Allergy Verified 10/09/21 22:52 Physical Exam Osteopathic Statement: *. No significant issues noted on an osteopathic structural exam other than those noted in the History and Physical/Consult. Vitals: Vital Signs Temp Pulse Resp BP Pulse Ox 10/10/21 01:06 85 18 132/67 98 10/09/21 20:07 99.3 F 101 H 17 125/87 98 Intake and Output 10/09/21 10/09/21 10/10/21 14:59 22:59 06:59 Other: Voiding Method Toilet Weight 73.936 kg 73.936 kg Results CBC & Chem 7: 10/09/21 23:34 10/09/21 23:34 Labs: Abnormal Lab Results - Last 24 Hours (Table) 10/09/21 10/09/21 10/10/21 Range/Units 23:34 23:34 01:06 Neutrophils # 8.5 H (1.3-7.7) k/uL ESR 29 H (0-20) mm/hr Sodium 135 L (137-145) mmol/L Carbon Dioxide 20 L (22-30) mmol/L Calcium 8.1 L (8.4-10.2) mg/dL ALT 45 H (4-34) U/L C-Reactive Protein 4.9 H (<1.0) mg/dL Urine Ketones 1+ H (Negative) Urine Blood Small H (Negative) Urine Bacteria Rare H (None) /hpf
[2021-10-10] MEDS ORDERED: KETOROLAC 15 MG/ML 1 ML VIAL IVP PRN (04:00)
[2021-10-10 07:40] VITALS: BP 134/80; PULSE 84; TEMP 98
[2021-10-10] MEDS ORDERED: diphenhydrAMINE 50 MG/ML 1 ML VIAL IVP STA (09:29)
[2021-10-10] MEDS ORDERED: PROCHLORPERAZINE INJ 10 MG/2 ML VIAL IVP STA (09:30)
[2021-10-10] MEDS ORDERED: KETOROLAC 15 MG/ML 1 ML VIAL IVP STA (09:30)
[2021-10-10] MEDS ORDERED: SUMAtriptan succinate 6 MG/0.5 ML VIAL SQ STA (09:36)
--- NOTE | 2021-10-10 13:36 | P.CNNES ---
History of Present Illness Consult date: 10/10/21 Requesting physician: Aracelis Henriquez Reason for Consult: new onset migraine History of Present Illness: This is a 31-year-old woman who presented to emergency department for headache. It seems to the patient the has a new onset of headache about a week ago. It is located over the bilateral frontal (right>left) and right retro-orbital. Feels it is pressure/aching, constant. Denies radiation. Has photophobia, nausea. Denies phonophobia or vomiting. Feels headache is 7-9/10 on presentation but currently is 3-4/10. Feels has some blurry vision over the right eye. Denies any head trauma, fever, cough recently. Denies any focal weakness, numbness, difficulty getting words out. Denies similar headache like this. Mother has migraines. Patient does not consume caffeine. 1 pack can last her 2-3 days. She is undergoing a lot of stress since unemployed currently and dealing with her -in-laws and was emotional about it. Some other workup in the hospital consisted of: Patient has been afebrile during this hospital visit White blood cell is 10.2 ESR is 29 and a normal supposed to be between 0-20 CRP is 4.9 normal supposed to be less than 1.0. CT of the head is reported as a normal unenhanced head CT scan. I personally reviewed the CT of the head and I agree with the report. CT angiography of the head and neck is reported as normal. Influenza A/B and salmon virus is not detected In the ED the patient got multiple medication to treat a headache she received migraine cocktail consisting of Compazine, Benadryl and Toradol as well as Zofran and she received is seems the migraine consult twice. She received dexamethasone 10 mg IV once. As well as that she received methylprednisolone 60mg IV,. Fiorcet. Review of Systems Review of system: The 12 point system was reviewed and apparent positive and negative per HPI. Past Medical History Past Medical History: No Reported History History of Any Multi-Drug Resistant Organisms: None Reported Past Surgical History: No Surgical Hx Reported Past Psychological History: No Psychological Hx Reported Smoking Status: Current every day smoker Past Alcohol Use History: Occasional Past Drug Use History: Marijuana - Past Family History Father Family Medical History: No Reported History Mother Family Medical History: No Reported History Medications and Allergies Home Medications Medication Instructions Recorded Confirmed Type Ibuprofen [Motrin Ib] 800 mg PO Q8H PRN 12/27/19 10/09/21 History Omeprazole Magnesium [PriLOSEC OTC] 20 mg PO DAILY 10/09/21 10/09/21 History Topiramate [Topamax] 25 mg PO BID 30 Days #60 tab 10/10/21 Rx Allergies Allergy/AdvReac Type Severity Reaction Status Date / Time No Known Allergies Allergy Verified 10/09/21 22:52 Physical Examination - Vital Signs Vital Signs: Vital Signs Temp Pulse Pulse Resp BP BP Pulse Ox 10/10/21 07:00 98.0 F 84 18 134/80 99 10/10/21 02:35 98.1 F 63 18 117/76 97 10/10/21 01:06 85 18 132/67 98 10/09/21 20:07 99.3 F 101 H 17 125/87 98 Intake and Output 10/09/21 10/10/21 10/10/21 22:59 06:59 14:59 Intake Total 90 Balance 90 Intake: Oral 90 Other: Voiding Method Toilet # Voids 2 Weight 73.936 kg 73.936 kg GENERAL: The patient is lying in bed and is not in acute distress. CHEST: The heart rate is regular rate rhythm. No murmurs to auscultation. No carotid bruit bilaterally. LUNG: Clear to auscultation bilaterally no wheezing noted throughout. Not labored breathing. ABDOMEN/GI: Bowel sounds present in all 4 quadrants. No tenderness to palpation throughout. NEUROLOGICAL: Higher mental function: The patient is awake, alert, oriented to self, place and time. Patient is following commands. No aphasia and no neglect. Cranial nerves: The pupils are round, equal and reactive to light and accommodation. Visual naqvi are full to confrontation throughout. Extraocular movement is intact no nystagmus is noted. Facial sensation is normal to touch throughout. The facial strength is normal throughout. Hearing is normal bilaterally to hand rub. Tongue is midline and moved [id number] without any difficulty. No dysarthria is noted. Shoulder shrug is normal bilaterally. Motor: The strength is 5 over 5 throughout. Normal tone and bulk. Cerebellum: Normal finger to nose heel to sanabria bilaterally. Sensation: Sensation is normal to touch throughout. Reflexes (right/left): 2+ throughout. Plantars are downgoing bilaterally. Results - Laboratory Findings CBC and BMP: 10/09/21 23:34 10/09/21 23:34 Abnormal Lab Findings: Abnormal Labs 10/09/21 10/09/21 10/10/21 23:34 23:34 01:06 Neutrophils # 8.5 H ESR 29 H Sodium 135 L Carbon Dioxide 20 L Calcium 8.1 L ALT 45 H C-Reactive Protein 4.9 H Urine Ketones 1+ H Urine Blood Small H Urine Bacteria Rare H Assessment and Plan Assessment: New onset migraine with aura Tobacco use Plan: I ordered MRI Brain w/ and w/o to rule out any mass or structural abnormality which can be performed as outpatient since no focality (no availability today for MRI). Recommend starting Topamax 25mg 1 tab bid and in one week if no improvement recommend going up to 25mg 2 tab bid. Use Imitrex 50mg PRN (use 2 hours in between within one day and max is 2 in a day with max of 9 tab in a month. Continue when necessary sets when necessary. I also added Imitrex 60 mg subcu once. On Toradol 50 mg IV when necessary. I also started the patient on Topamax 51 g one tablet twice a day. Continue neuro checks Regarding her stressors at home: Recommend psychiatry consultation and if not possible can be done as outpatient and patient needs to follow-up with therapist. She denies of suicidal or homicidal ideation or plan. We'll defer the rest of medical management to primary team Patient needs to follow-up with neurologist as outpatient within 1-2 weeks. The plan is discussed with the patient and primary team. Thank you for the consultation Patient is clear for discharge from neurological perspective. Luis Antonio Paul M.D. Neuro-hospitalist Time with Patient: Greater than 30
--- NOTE | 2021-10-10 19:08 | P.DS ---
Providers Date of admission: 10/10/21 00:05 Expected date of discharge: 10/10/21 Attending physician: Rip Alarcon MD Consults: 10/10/21 00:03 Consult Physician Urgent Consulting Provider: Luis Antonio Paul Consult Reason/Comments: new onset migraine Do you want consulting provider notified?: Yes Primary care physician: Stated None Hospital Course: Discharge Diagnosis: Migraine, patient discharged home on Topamax 25 mg twice daily Nicotine dependence, recommend smoking cessation Increased life stressors, recommend outpatient therapist/psychiatrist Cannabis use Hospital Course: Patient is a 31-year-old female with a past medical history occasional marijuana use and nicotine dependence. She presented to our emergency department on 10/10/21 with a chief complaint of headache. Patient reports increased stressors in her home as her [id number] and [id number] moved in and she has been experiencing a persistent headache 7 days with slight changes in vision in her right eye that has not improved despite home Motrin use. Patient underwent CT brain which was negative for acute intercranial process. CTA head and neck negative. CBC and BMP showing no significant abnormalities with the exception of mildly elevated ALT of 45. Urinalysis negative for infection and urine hCG negative. Covid PCR, influenza A/B both negative. Patient was admitted under our services with consultation to neurology. Patient underwent neurology evaluation. Patient reports significant improvement in headache. Neurology recommending Topamax 25 mg twice daily and outpatient follow-up with neurologist office for recommended outpatient MRI. Patient also given information on outpatient therapist/psychiatrist: [facility] as requested for increased stressors in her home. Patient medically stable for discharge at this time and to follow up outpatient with PCP and neurology. Patient seen and examined at bedside. Vital signs reviewed and stable. General: Nontoxic, no distress and appears stated age. Derm: Skin warm and dry, normal coloration for ethnicity. Head: Atraumatic, normocephalic and symmetric. Eyes: EOMs intact, no lid lag, and anicteric sclera Mouth: no lip lesions, mucus membranes moist Cardiovascular: regular rate and rhythm with normal S1S2, no murmur, positive posterior tibial pulses bilaterally, and cap refill < 2 seconds. Lungs: Respirations even, regular, and unlabored on room air. Lungs CTA bilaterally, no rhonchi, no rales, no wheezing, and no accessory muscle usage. Abdominal: soft, nontender to palpation, no guarding, no appreciable organomegaly Ext: ROM intact. No gross muscle atrophy, no edema, no contractures Neuro: Speech clear, face symmetrical and CN II-XII grossly intact with no noted focal neuro deficits Psych: Alert and oriented to person, place, time, and situation. Appropriate and pleasant affect. A total of 32 minutes of time were spent preparing this complex discharge summary. Pt was discharged on 10/10/21 at 1:03 PM. Chris Freeman NP rendered care for this patient independently, reviewed the findings and plan as documented in the note above. I did not physically speak with or examine the patient on this date. Patient Condition at Discharge: Good Plan - Discharge Summary New Discharge Prescriptions: New Topiramate [Topamax] 25 mg PO BID 30 Days #60 tab Continue Ibuprofen [Motrin Ib] 800 mg PO Q8H PRN PRN Reason: Pain Omeprazole Magnesium [PriLOSEC OTC] 20 mg PO DAILY Discharge Medication List Ibuprofen [Motrin Ib] 800 mg PO Q8H PRN 12/27/19 [History] Omeprazole Magnesium [PriLOSEC OTC] 20 mg PO DAILY 10/09/21 [History] Topiramate [Topamax] 25 mg PO BID 30 Days #60 tab 10/10/21 [Rx] Follow up Appointment(s)/Referral(s): Cintia Chaudhry MD [REFERRING] - 1 Week Delonte Del Toro MD [REFERRING] - 1-2 Days (Please be evaluated and establish care with a PCP) Patient Instructions/Handouts: Migraine Headache (ED) Activity/Diet/Wound Care/Special Instructions: Activity: As tolerated. Take breaks as needed. Diet: Heart healthy and carb consistent diet. Avoid salts, or foods with hidden salts such as canned or boxed foods and frozen dinners. Extra salt makes your heart work harder and traps the fluid in your body for longer. Special Instructions: Take all of your medications as directed and remember to keep all of your doctor's appointments and follow-up as needed. Information on outpatient therapist/psychiatrist: [facility] Address: [address], [place] [address] It is recommended that you establish care with a primary care provider, contact information has been provided to you for a recommended family doctor in the area. In addition you will need to follow up outpatient with neurology for recommended outpatient MRI for further evaluation of your migraine and lastly, above is information regarding therapist/psychiatrist as you requested secondary to increased stress in the home. Thank you for allowing us to participate in your care, it was truly a pleasure having you for our patient!!! Discharge Disposition: HOME SELF-CARE
== END 2021-10-10 15:18 | disposition home or self-care (01) ==
LOC: EC 19:26 → 6NMEDSUR 10-10 00:05
PROVIDERS: ADMIT Internal Medicine; ATTEND Internal Medicine
DX: G43.109 Migraine with aura, not intractable, without status migrainosus (principal); R74.01 Elevation of levels of liver transaminase levels; F17.200 Nicotine dependence, unspecified, uncomplicated; Z56.0 Unemployment, unspecified; Z20.822 Contact with and (suspected) exposure to COVID-19; Z79.899 Other long term (current) drug therapy; Z63.79 Other stressful life events affecting family and household; Z71.6 Tobacco abuse counseling; Z82.0 Family history of epilepsy and other diseases of the nervous system
CPT/HCPCS: 96376; 96366 ×2; 96372; 96365; 96367; 96375; 99285; 36415; 80053; 85652; 85025; 86140; 81001; 81025; 87502; 87635; 70496; 70450; 70498; G0378; J3030; J2270; J1200; J1100; J2765; J3475; J1885 ×2; Q9967

== ENCOUNTER → 2021-10-23 | Outpatient (CLI) | payer OTHER ==
[2021-10-24 01:07] LABS: Rheumatoid Factor, Qnt <10 IU/mL (0-15)
[2021-10-24 12:22] LABS: Angiotensin-1 Converting Enz. 36 U/L (8-52)
[2021-10-24 15:43] LABS: HLA B27 NEGATIVE
== END | disposition home or self-care (01) ==
LOC: LABWHC1 16:05
PROVIDERS: ATTEND Ophthalmology
DX: N28.86 Ureteritis cystica (principal)
CPT/HCPCS: 36415; 82164; 85549; 85652; 86038; 86140; 86431; 86618; 86780; 86812; 87390

== ENCOUNTER → 2021-10-31 | Outpatient (CLI) | payer OTHER ==
--- NOTE | 2021-10-31 12:56 | MR ---
EXAMINATION TYPE: MR brain wo/w con DATE OF EXAM: 10/31/2021 COMPARISON: CT brain October 09, 2021 HISTORY: Headache, vision loss TECHNIQUE: Multiplanar, multisequence images of the brain and brainstem is performed without and with IV contras t, utilizing 7.5 mL intravenous Gadavist . FINDINGS: Diffusion weighted images demonstrate no evidence of a recent infarct or other diffusion ab normality. There is no extra-axial fluid collection or significant white matter signal abnormality. The ventricular system and cisternal spaces remain normal in size and appearance. The brain volume is age appropriate. Midline structures demonstrate normal morphology. The craniocervical junction appears within normal limits. Post contrast images demonstrate no abnormal enhancement. The dural venous sinuses appear pa tent. The visualized sinuses are clear and the globes are intact. IMPRESSION: Unremarkable study.
== END | disposition home or self-care (01) ==
LOC: RADMRIMAIN 06:29
PROVIDERS: ATTEND Physician Assistant Medical
DX: R51.9 Headache, unspecified (principal)
CPT/HCPCS: 70553; A9585

== ENCOUNTER → 2021-11-02 | Outpatient (CLI) | payer OTHER | END | disposition home or self-care (01) | LOC: LABWHC1 12:17 | PROVIDERS: ATTEND Family Medicine | DX: H20.9 Unspecified iridocyclitis (principal) | CPT/HCPCS: 36415; 82306; 86480 ==

== ENCOUNTER → 2021-11-27 | Outpatient (CLI) | payer OTHER ==
[2021-11-27 18:42] LABS: Basophils # (A) 0.05 X 10*3/uL (0.00-0.10); Basophils % (A) 0.5 %; Eosinophils % (A) 3.3 %; HCT 38.2 % (37.2-46.3); HGB 11.8 g/dL (12.0-15.0); Immature Grans, Automated 0.2 %; Lymphocytes # (A) 1.53 X 10*3/uL (0.90-5.00); Lymphocytes % (A) 16.6 %; MCH 28.1 pg (27.0-32.0); MCHC 30.9 g/dL (32.0-37.0); Mean Platelet Volume 10.8 fL (9.5-12.2); Monocytes # (A) 0.51 X 10*3/uL (0.20-1.00); Monocytes % (A) 5.5 %; NRBC Per 100 WBC 0 /100 WBCS (0.0-0.0); Neutrophils # (A) 6.82 X 10*3/uL (1.80-7.70); Neutrophils % (A) 73.9 %; Platelet Count 375 X 10*3/uL (140-440); RDW 13.3 % (11.5-14.5); WBC 9.23 X 10*3/uL (4.50-10.00)
[2021-11-27 19:26] LABS: ALT 18 U/L (8-44); AST 18 U/L (13-35); African American GFR (CKD) 69.7 (60.0-200.0); Albumin 4.3 g/dL (3.8-4.9); Albumin/Globulin Ratio 1.49 (1.60-3.17); Alkaline Phosphatase 82 U/L (41-126); BUN/Creat Ratio 12.92 Ratio (12.00-20.00); Blood Urea Nitrogen 15.5 mg/dL (9.0-27.0); Calcium 9.4 mg/dL (8.7-10.3); Carbon Dioxide 19.9 mmol/L (20.0-27.5); Chloride 103 mmol/L (96-109); Globulin 2.9 g/dL (1.6-3.3); Glucose 82 mg/dL (70-110); LDL Cholesterol,Calculated 113.1 mg/dL (0.0-131.0); Non-African American GFR(CKD) 60.2 (60.0-200.0); Potassium 3.8 mmol/L (3.5-5.5); Sodium 139 mmol/L (135-145); Total Protein 7.2 g/dL (6.2-8.2)
== END | disposition home or self-care (01) ==
LOC: LABWHC1 11:24
PROVIDERS: ATTEND Physician Assistant Medical
DX: Z13.220 Encounter for screening for lipoid disorders (principal); E55.9 Vitamin D deficiency, unspecified; H20.9 Unspecified iridocyclitis; R53.83 Other fatigue; R41.3 Other amnesia
CPT/HCPCS: 36415; 80053; 80061; 82306; 82607; 83036; 84439; 84443; 84481; 85025

== ENCOUNTER 2024-08-20 18:37 | Emergency (ER) | payer OTHER ==
[2024-08-20 18:47] VITALS: TEMP 98.1
--- NOTE | 2024-08-20 19:12 | ED ---
Abdominal Pain HPI - General Chief Complaint: Abdominal Pain Stated Complaint: N/V, constipation Time Seen by Provider: 08/20/24 18:51 Source: patient, RN notes reviewed Mode of arrival: ambulatory Limitations: no limitations - History of Present Illness Initial Comments: This is a 33-year-old female presenting with abdominal pain/cramping (08/27) x 5 days. Patient also endorses feeling "bloated", lower back pain, decreased appetite, shortness of breath and vomiting/diarrhea. Patient states pain is intermittent that worsens with eating and movement. Denies fever, chills, chest pain, dizziness, urinary symptoms, vaginal bleeding/discharge. MD Complaint: abdominal pain Onset/Timin -: days(s) Location: epigastric, suprapubic Radiation: back Migration to: no migration Severity scale (1-10): 4 Quality: cramping Consistency: intermittent Worsens With: eating, movement Associated Symptoms: nausea, vomiting, diarrhea Treatments Prior to Arrival: other (Pepto) - Related Data Home Medications Medication Instructions Recorded Confirmed Ibuprofen [Motrin Ib] 800 mg PO Q8H PRN 12/27/19 10/09/21 Omeprazole Magnesium [PriLOSEC OTC] 20 mg PO DAILY 10/09/21 10/09/21 Previous Rx's Medication Instructions Recorded Topiramate [Topamax] 25 mg PO BID 30 Days #60 tab 10/10/21 Cyclobenzaprine [Flexeril] 10 mg PO TID PRN #15 tab 08/20/24 Allergies Allergy/AdvReac Type Severity Reaction Status Date / Time No Known Allergies Allergy Verified 08/20/24 18:47 Review of Systems ROS Statement: Those systems with pertinent positive or pertinent negative responses have been documented in the HPI. ROS Other: All systems not noted in ROS Statement are negative. Past Medical History Past Medical History: No Reported History History of Any Multi-Drug Resistant Organisms: None Reported Past Surgical History: No Surgical Hx Reported, Orthopedic Surgery Past Psychological History: No Psychological Hx Reported Smoking Status: Current every day smoker Past Alcohol Use History: Daily Past Drug Use History: Marijuana - Past Family History Father Family Medical History: No Reported History Mother Family Medical History: No Reported History General Exam Limitations: no limitations General appearance: alert, in no apparent distress Head exam: Present: atraumatic, normocephalic, normal inspection Eye exam: Present: normal appearance, PERRL, EOMI. Absent: scleral icterus, conjunctival injection, periorbital swelling ENT exam: Present: normal exam, mucous membranes moist Neck exam: Present: normal inspection. Absent: tenderness, meningismus, lymphadenopathy Respiratory exam: Present: normal lung sounds bilaterally. Absent: respiratory distress, wheezes, rales, rhonchi, stridor Cardiovascular Exam: Present: normal rhythm, tachycardia, normal heart sounds. Absent: systolic murmur, diastolic murmur, rubs, gallop, clicks GI/Abdominal exam: Present: soft, tenderness (Positive diffuse abdominal tenderness especially in the epigastric and hypogastric regions without guarding), normal bowel sounds. Absent: distended, guarding, rebound, rigid Extremities exam: Present: normal inspection, full ROM, normal capillary refill. Absent: tenderness, pedal edema, joint swelling, calf tenderness Back exam: Present: normal inspection, tenderness, muscle spasm (Positive bilateral paralumbar muscle spasm with point tenderness). Absent: CVA tenderness (R), CVA tenderness (L), vertebral tenderness Neurological exam: Present: alert, oriented X3, CN II-XII intact Psychiatric exam: Present: normal affect, normal mood Skin exam: Present: warm, dry, intact, normal color. Absent: rash Course Vital Signs 08/20/24 08/20/24 18:43 21:26 Temperature 98.1 F Pulse Rate 133 H 108 H Respiratory 20 16 Rate Blood Pressure 149/93 142/107 O2 Sat by Pulse 99 99 Oximetry Medical Decision Making - Medical Decision Making Was pt. sent in by a medical professional or institution (, PA, LAUNDRY PRICING CLERK, urgent care, hospital, or [facility]...) When possible be specific @ -No Did you speak to anyone other than the patient for history (EMS, parent, family, police, friend...)? What history was obtained from this source @ -No Did you review nursing and triage notes (agree or disagree)? Why? @ -I reviewed and agree with nursing and triage notes Were old charts reviewed (outside hosp., previous admission, EMS record, old EKG , old radiological studies, urgent care reports/EKG's, [facility] records)? Report findings @ -No old charts were reviewed Differential Diagnosis (chest pain, altered mental status, abdominal pain women, abdominal pain men, vaginal bleeding, weakness, fever, dyspnea, syncope, headache, dizziness, GI bleed, back pain, seizure, CVA, palpatations, mental health, musculoskeletal)? @ -Differential Abdominal Pain Women: Appendicitis, Cholecystitis, diverticulosis, ischemic bowel, pancreatitis, hep atitis, UTI, gastroenteritis, AAA, incarcerated hernia, bowel obstruction, constipation, inflammatory bowel, hepatitis, peptic ulcer disease, splenic infarction, perforated viscus, vulvitis, ovarian torsion, PID, kidney stone, placenta abruption, this is not meant to be an all-inclusive list EKG interpreted by me (3pts min.). @ -Not done X-rays interpreted by me (1pt min.). @ -None done CT interpreted by me (1pt min.). @ -Abdomen/pelvic CT shows no acute process with evidence of hepatic steatosis. U/S interpreted by me (1pt. min.). @ -None done What testing was considered but not performed or refused? (CT, X-rays, U/S, labs)? Why? @ -None What meds were considered but not given or refused? Why? @ -None Did you discuss the management of the patient with other professionals (professionals i.e. , PA, LAUNDRY PRICING CLERK, lab, RT, psych nurse, clinical social work aide, instructor modeling, teacher, fisheries technical officer, case coordinator)? Give summary @ -No Was smoking cessation discussed for >3mins.? @ -No Was critical care preformed (if so, how long)? @ -No Were there social determinants of health that impacted care today? How? (Homelessness, low income, unemployed, alcoholism, drug addiction, transportatio n, low edu. Level, literacy, decrease access to med. care, penitentiary, rehab)? @ -No Was there de-escalation of care discussed even if they declined (Discuss DNR or withdrawal of care, Hospice)? DNR status @ -No What co-morbidities impacted this encounter? (DM, HTN, Smoking, COPD, CAD, Cancer, CVA, ARF, Chemo, Hep., AIDS, mental health diagnosis, sleep apnea, morbid obesity)? @ -None Was patient admitted / discharged? Hospital course, mention meds given and route, prescriptions, significant lab abnormalities, going to OR and other pertinent info. @ -Lab work shows elevated LFTs with negative UA and Cepheid testotherwise unremarkable. Abdomen/pelvic CT shows no acute process with evidence of hepatic steatosis. Patient initially provided IV normal saline. Following testing provided IV morphine and discharged with T3 starter pack. Flexeril sent to patient's pharmacy. Advised follow-up with PCP for ongoing management of symptoms. Discussed patient with Dr. Garcia. Undiagnosed new problem with uncertain prognosis? @ -No Drug Therapy requiring intensive monitoring for toxicity (Heparin, Nitro, Insulin, Cardizem)? @ -No Were any procedures done? @ -No Diagnosis/symptom? @ -Abdominal pain, lower back muscle spasm Acute, or Chronic, or Acute on Chronic? @ -Acute Uncomplicated (without systemic symptoms) or Complicated (systemic symptoms)? @ -Complicated Side effects of treatment? @ -No Exacerbation, Progression, or Severe Exacerbation? @ -No Poses a threat to life or bodily function? How? (Chest pain, [place], [place], pneumonia, PE, COPD, DKA, ARF, appy, cholecystitis, CVA, Diverticulitis, Homicidal, Suicidal, threat to staff... and all critical care pts) @ -No - Lab Data Result diagrams: 08/20/24 19:30 08/20/24 19:30 Lab Results 08/20/24 08/20/24 08/20/24 Range/Units 19:30 19:30 19:30 WBC 10.5 (3.8-10.6) k/uL RBC 4.77 (3.80-5.40) m/uL Hgb 14.3 (11.4-16.0) gm/dL Hct 43.9 (34.0-46.0) % MCV 91.9 (80.0-100.0) fL MCH 30.0 (25.0-35.0) pg MCHC 32.7 (31.0-37.0) g/dL RDW 13.5 (11.5-15.5) % Plt Count 244 (150-450) k/uL MPV 8.2 Neutrophils % 71 % Lymphocytes % 20 % Monocytes % 5 % Eosinophils % 2 % Basophils % 0 % Neutrophils # 7.5 (1.3-7.7) k/uL Lymphocytes # 2.1 (1.0-4.8) k/uL Monocytes # 0.5 (0-1.0) k/uL Eosinophils # 0.2 (0-0.7) k/uL Basophils # 0.0 (0-0.2) k/uL Sodium (137-145) mmol/L Potassium (3.5-5.1) mmol/L Chloride (98-107) mmol/L Carbon Dioxide (22-30) mmol/L Anion Gap mmol/L BUN (7-17) mg/dL Creatinine (0.52-1.04) mg/dL Est GFR (CKD-EPI)AfAm (>60 ml/min/1.73 sqM) Est GFR (CKD-EPI)NonAf (>60 ml/min/1.73 sqM) Glucose (74-99) mg/dL Plasma Lactic Acid Brant (0.7-2.0) mmol/L Calcium (8.4-10.2) mg/dL Total Bilirubin (0.2-1.3) mg/dL AST (14-36) U/L ALT (4-34) U/L Alkaline Phosphatase (38-126) U/L Total Protein (6.3-8.2) g/dL Albumin (3.5-5.0) g/dL Amylase (30-110) U/L Lipase (23-300) U/L Urine Color Yellow Urine Appearance Clear (Clear) Urine pH 6.0 (5.0-8.0) Ur Specific [place] 1.026 (1.001-1.035) Urine Protein Trace H (Negative) Urine Glucose (UA) Negative (Negative) Urine Ketones Negative (Negative) Urine Blood Negative (Negative) Urine Nitrite Negative (Negative) Urine Bilirubin Negative (Negative) Urine Urobilinogen <2.0 (<2.0) mg/dL Ur Leukocyte Esterase Negative (Negative) Urine HCG, Qual Not Detected (Not Detectd) Influenza Type A (PCR) (Not Detectd) Influenza Type B (PCR) (Not Detectd) RSV (PCR) (Not Detectd) SARS-CoV-2 (PCR) (Not Detectd) 08/20/24 08/20/24 08/20/24 Range/Units 19:30 19:30 21:01 WBC (3.8-10.6) k/uL RBC (3.80-5.40) m/uL Hgb (11.4-16.0) gm/dL Hct (34.0-46.0) % MCV (80.0-100.0) fL MCH (25.0-35.0) pg MCHC (31.0-37.0) g/dL RDW (11.5-15.5) % Plt Count (150-450) k/uL MPV Neutrophils % % Lymphocytes % % Monocytes % % Eosinophils % % Basophils % % Neutrophils # (1.3-7.7) k/uL Lymphocytes # (1.0-4.8) k/uL Monocytes # (0-1.0) k/uL Eosinophils # (0-0.7) k/uL Basophils # (0-0.2) k/uL Sodium 137 (137-145) mmol/L Potassium 3.7 (3.5-5.1) mmol/L Chloride 105 (98-107) mmol/L Carbon Dioxide 19 L (22-30) mmol/L Anion Gap 13 mmol/L BUN 12 (7-17) mg/dL Creatinine 0.65 (0.52-1.04) mg/dL Est GFR (CKD-EPI)AfAm >90 (>60 ml/min/1.73 sqM) Est GFR (CKD-EPI)NonAf >90 (>60 ml/min/1.73 sqM) Glucose 106 H (74-99) mg/dL Plasma Lactic Acid Brant 1.1 (0.7-2.0) mmol/L Calcium 9.5 (8.4-10.2) mg/dL Total Bilirubin 0.7 (0.2-1.3) mg/dL AST 82 H (14-36) U/L ALT 117 H (4-34) U/L Alkaline Phosphatase 63 (38-126) U/L Total Protein 7.8 (6.3-8.2) g/dL Albumin 4.8 (3.5-5.0) g/dL Amylase 52 (30-110) U/L Lipase 156 (23-300) U/L Urine Color Urine Appearance (Clear) Urine pH (5.0-8.0) Ur Specific [place] (1.001-1.035) Urine Protein (Negative) Urine Glucose (UA) (Negative) Urine Ketones (Negative) Urine Blood (Negative) Urine Nitrite (Negative) Urine Bilirubin (Negative) Urine Urobilinogen (<2.0) mg/dL Ur Leukocyte Esterase (Negative) Urine HCG, Qual (Not Detectd) Influenza Type A (PCR) Not Detected (Not Detectd) Influenza Type B (PCR) Not Detected (Not Detectd) RSV (PCR) Not Detected (Not Detectd) SARS-CoV-2 (PCR) Not Detected (Not Detectd) Disposition Clinical Impression: Abdominal pain, Spasm of muscle of lower back Disposition: HOME SELF-CARE Condition: Good Instructions (If sedation given, give patient instructions): Abdominal Pain (ED), Muscle Spasm (ED) Additional Instructions: Follow-up with PCP/gastroenterology for ongoing evaluation of GI pain. Prescriptions: Cyclobenzaprine [Flexeril] 10 mg PO TID PRN #15 tab PRN Reason: Spasms Is patient prescribed a controlled substance at d/c from ED?: No Referrals: None,Stated [Primary Care Provider] - 1-2 days Carolina Pearl MD [STAFF PHYSICIAN] - 1-2 days Alison Garcia DO [REFERRING] - 1-2 days Time of Disposition: 21:10
[2024-08-20] MEDS: SODIUM CHLORIDE 0.9% 1,000 ML IV ONE (19:28)
[2024-08-20 19:43] LABS: Basophils % (A) 0 %; Eosinophils # (A) 0.2 k/uL (0-0.7); Eosinophils % (A) 2 %; HCT 43.9 % (34.0-46.0); HGB 14.3 gm/dL (11.4-16.0); Lymphocytes # (A) 2.1 k/uL (1.0-4.8); Lymphocytes % (A) 20 %; MCHC 32.7 g/dL (31.0-37.0); MCV 91.9 fL (80.0-100.0); Mean Platelet Volume 8.2; Monocytes # (A) 0.5 k/uL (0-1.0); Monocytes % (A) 5 %; Neutrophils # (A) 7.5 k/uL (1.3-7.7); Neutrophils % (A) 71 %; Platelet Count 244 k/uL (150-450); RBC 4.77 m/uL (3.80-5.40); RDW 13.5 % (11.5-15.5); WBC 10.5 k/uL (3.8-10.6)
[2024-08-20 19:44] LABS: Appearance,Urine Clear (Clear); Bilirubin,Urine Negative (Negative); Blood,Urine Negative (Negative); Color,Urine Yellow; Glucose,Urine (UA) Negative (Negative); Ketones,Urine Negative (Negative); Leukocyte Esterase,Urine Negative (Negative); Nitrite,Urine Negative (Negative); Protein,Urine Trace (Negative); Specific Gravity,Urine 1.026 (1.001-1.035); Urobilinogen,Urine <2.0 mg/dL (<2.0)
[2024-08-20 20:13] LABS: ALT 117 U/L (4-34); AST 82 U/L (14-36); African American GFR (CKD) >90 (>60 ml/min/1.73 sqM); Albumin 4.8 g/dL (3.5-5.0); Alkaline Phosphatase 63 U/L (38-126); Amylase 52 U/L (30-110); Anion Gap 13 mmol/L; Blood Urea Nitrogen 12 mg/dL (7-17); Calcium 9.5 mg/dL (8.4-10.2); Carbon Dioxide 19 mmol/L (22-30); Chloride 105 mmol/L (98-107); Glucose 106 mg/dL (74-99); Lipase 156 U/L (23-300); Non-African American GFR(CKD) >90 (>60 ml/min/1.73 sqM); Potassium 3.7 mmol/L (3.5-5.1); Sodium 137 mmol/L (137-145); Total Bilirubin 0.7 mg/dL (0.2-1.3); Total Protein 7.8 g/dL (6.3-8.2)
--- NOTE | 2024-08-20 20:22 | CT ---
EXAMINATION TYPE: CT abdomen pelvis w con CT DLP: 739.1 mGycm, Automated exposure control for dose reduction was used. DATE OF EXAM: 08/20/2024 8:10 PM COMPARISON: None CLINICAL INDICATION:Female, 33 years old with history of abdominal pain; Saturday symptoms started- D iarrhea- yellowish in color, abdominal cramping ( generalized) and vomiting. Pt states stool is now s oft but abdominal pain has not improved. Pt mentioned lower back pain and shortness of breath that re cently started. TECHNIQUE: Standard CT of the abdomen and pelvis following the administration of 100 cc of Isovue 3 00 IV contrast material. Coronal and sagittal reformats were performed. FINDINGS: LOWER CHEST: Unremarkable ABDOMEN LIVER: Diffusely hypoattenuating parenchyma. No focal lesion. Portal venous system is patent. GALLBLADDER AND BILE DUCTS: Unremarkable. PANCREAS: Unremarkable. SPLEEN: Unremarkable. ADRENAL GLANDS: Unremarkable. KIDNEYS AND URETERS: No evidence of hydronephrosis or renal calculus. The kidneys enhance symmetrical ly. Cortical thinning involving the superior pole of the left kidney from prior injury. Contrast demo nstrating within both collecting systems on the delayed phase. No perinephric fat stranding. PELVIS BLADDER: Incompletely distended but grossly unremarkable. REPRODUCTIVE: Remarkable anteverted uterus. Right ovarian 1.8 cm corpus luteum. ABDOMEN & PELVIS STOMACH AND BOWEL: Stomach and duodenum are unremarkable. No focal bowel wall thickening or surroundi ng inflammatory changes. The appendix appears within normal limits. No evidence of bowel obstruction. PERITONEUM: No evidence of pneumoperitoneum or free fluid. VASCULATURE: No evidence of aortic aneurysm. MUSCULOSKELETAL: No acute osseous abnormalities LYMPH NODES: No evidence for lymphadenopathy. SOFT TISSUE/ABDOMINAL WALL: Unremarkable IMPRESSION: 1. No CT evidence for acute abdominal/pelvic process. 2. Hepatic steatosis. [facility], , 08/20/2024 8:20 PM
[2024-08-20] MEDS: MORPHINE SULFATE 4 MG/ML SYRINGE IVP STA (21:21)
[2024-08-20] MEDS: ACET/COD 300 MG/30 MG STARTER PACK 6 TAB BTL PO STA (21:22)
[2024-08-20 21:28] VITALS: BP 142/107; PULSE 108; RESP 16
[2024-08-20 21:53] LABS: Influenza A Not Detected (Not Detectd); Influenza B Not Detected (Not Detectd); RSV Not Detected (Not Detectd)
== END 2024-08-20 21:28 | disposition home or self-care (01) ==
LOC: EC 18:37
DX: M62.830 Muscle spasm of back (principal); R10.13 Epigastric pain; F17.200 Nicotine dependence, unspecified, uncomplicated
CPT/HCPCS: 36415; 80053; 82150; 83605; 83690; 85025; 81003; 81025; 87636; 74177; 99284; 96374; 96361; J2270